=== PATIENT | female | born 1955 | race Caucasian/White ===

== ENCOUNTER 2019-07-28 12:19 | Outpatient (CLI) | payer OTHER ==
--- NOTE | 2019-07-28 13:33 | RAD ---
TWO VIEWS OF THE CHEST: DATE: 07/28/2019. COMPARISON: None. HISTORY: Dyspnea. FINDINGS: Mild increased linear interstitial density with pulmonary hyperinflation. Heart and mediastinal cont ours are stable. No pneumothorax or pleural fluid. No focal consolidation or alveolar edema. IMPRESSION: No acute findings. Interstitial prominence and pulmonary hyperinflation suggests chronic obstructive pulmonary disease in the proper clinical setting. POS: OFF
== END 2019-07-28 12:20 | disposition home or self-care (01) ==
LOC: RAD 12:19
PROVIDERS: ATTEND Internal Medicine Critical Care Medicine
DX: R06.00 Dyspnea, unspecified (principal)
CPT/HCPCS: 71046

== ENCOUNTER 2024-03-30 14:32 | Outpatient (CLI) | payer MEDICARE, OTHER | END 2024-03-30 14:33 | disposition home or self-care (01) | LOC: RAD 14:32 | PROVIDERS: ATTEND Internal Medicine Critical Care Medicine | DX: R06.00 Dyspnea, unspecified (principal); J44.9 Chronic obstructive pulmonary disease, unspecified | CPT/HCPCS: 71046 ==

== ENCOUNTER 2024-04-20 09:58 | Outpatient (CLI) | payer MEDICARE, OTHER | END 2024-04-20 09:59 | disposition home or self-care (01) | LOC: RAD 09:58 | PROVIDERS: ATTEND Internal Medicine Critical Care Medicine | DX: R06.00 Dyspnea, unspecified (principal) | CPT/HCPCS: 71046 ==